=== PATIENT | female | born 1990 | race Caucasian/White ===

== ENCOUNTER 2018-06-09 17:36 | Inpatient (IN) | payer OTHER ==
[~2018-06-09 17:36] MED LIST: BUPIVACAINE 0.75%/DEXT (SPINAL) 2 ML INJ; OXYTOCIN 30 UNITS/LR 500 ML BAG IV
[2018-06-09] MEDS: LACTATED RINGER'S 1,000 ML IV ×2 (18:51→20:28)
[2018-06-09] MEDS ORDERED: CARBOPROST 250 MCG INJ IM (19:00)
[2018-06-09] MEDS ORDERED: OXYTOCIN 30 UNITS/LR 500 ML IV (19:00)
[2018-06-09] MEDS ORDERED: CEFAZOLIN 2 GM/50 ML (PMX) 50 ML IVPB (19:00)
[2018-06-09] MEDS ORDERED: MISOPROSTOL 200 MCG TAB PR (19:00)
[2018-06-09] MEDS ORDERED: METHYLERGONOVINE 0.2 MG INJ IM (19:00)
[2018-06-09 19:01] LABS: ADD MAN DIFF? NO
[2018-06-09 19:03] LABS: BASOPHILS % 0.3 % (0.0-2.0); EOSINOPHILS % 0.2 % (0.0-7.0); HEMATOCRIT 37.3 % (37.0-47.0); HEMOGLOBIN 12.4 g/dl (12.0-16.0); LYMPHOCYTES # 1.8 10^3/ul (0.8-2.9); LYMPHOCYTES % 17.8 % (15.0-51.0); MEAN CORPUSCULAR HEMOGLOBIN 30.6 pg (29.0-33.0); MEAN CORPUSCULAR HGB CONC 33.2 g/dl (32.0-37.0); MEAN CORPUSCULAR VOLUME 92.1 fl (82.0-101.0); MEAN PLATELET VOLUME 11.3 fl (7.4-10.4); MONOCYTE # 0.6 10^3/ul (0.3-0.9); MONOCYTES % 6.2 % (0.0-11.0); NEUTROPHIL # 7.6 10^3/ul (1.6-7.5); NEUTROPHILS % 74.7 % (39.0-77.0); PLATELET COUNT 223 10^3/UL (140-415); RED BLOOD COUNT 4.05 10^6/ul (4.20-5.40); RED CELL DISTRIBUTION WIDTH 14.5 % (11.5-14.5)
[2018-06-09 19:03] LABS: WHITE BLOOD COUNT 10.2 10^3/ul (4.8-10.8)
[2018-06-09 19:23] LABS: INR 0.91; PROTIME 12.3 Sec (11.9-14.9)
[2018-06-09 19:24] LABS: PARTIAL THROMBOPLASTIN TIME 26.4 Sec (23.0-35.0)
[2018-06-09 19:55] LABS: HEPATITIS B SURFACE ANTIGEN NEGATIVE (NEGATIVE)
[2018-06-09] MEDS ORDERED: ONDANSETRON 4 MG INJ (21:00)
[2018-06-09] MEDS ORDERED: OXYTOCIN 10 UNIT INJ (21:00)
[2018-06-09] MEDS ORDERED: morphine SULFATE/PF (10 MG/10 ML) INJ (21:01)
[2018-06-09] MEDS ORDERED: PHENYLephrine (100 MCG/ML) 5ML SYG ×2 (21:01→22:00)
[2018-06-09] MEDS ORDERED: ONDANSETRON 4 MG INJ IV (22:30)
[2018-06-09] MEDS ORDERED: morphine 2 MG INJ IV (22:30)
[2018-06-09] MEDS ORDERED: NALOXONE (0.4 MG/ML) INJ IV (22:30)
[2018-06-09] MEDS ORDERED: DIPHENHYDRAMINE 50 MG INJ IV (22:30)
[2018-06-09] MEDS: OXYTOCIN 30 UNITS/LR 500 ML IV (22:36)
[2018-06-10] MEDS: KETOROLAC 30 MG INJ IV (01:06)
[2018-06-10] MEDS ORDERED: DEXTROSE 5%-LR 1,000 ML IV (01:29)
[2018-06-10] MEDS ORDERED: OXYTOCIN 30 UNITS/LR 500 ML IV (01:30)
[2018-06-10] MEDS ORDERED: METHYLERGONOVINE 0.2 MG TAB PO (01:30)
[2018-06-10] MEDS ORDERED: METHYLERGONOVINE 0.2 MG INJ IM (01:30)
[2018-06-10] MEDS ORDERED: CARBOPROST 250 MCG INJ IM (01:30)
[2018-06-10] MEDS ORDERED: LANOLIN 7 GM TUBE TOP (01:30)
[2018-06-10] MEDS ORDERED: MISOPROSTOL 200 MCG TAB PR (01:30)
[2018-06-10] MEDS: OXYTOCIN 30 UNITS/LR 500 ML IV (02:15)
[2018-06-10 07:51] LABS: ADD MAN DIFF? NO
[2018-06-10 07:54] LABS: WHITE BLOOD COUNT 11.1 10^3/ul (4.8-10.8)
[2018-06-10 07:54] LABS: BASOPHILS % 0.4 % (0.0-2.0); EOSINOPHILS % 0.3 % (0.0-7.0); HEMOGLOBIN 11.6 g/dl (12.0-16.0); LYMPHOCYTES # 1.7 10^3/ul (0.8-2.9); LYMPHOCYTES % 15.5 % (15.0-51.0); MEAN CORPUSCULAR HEMOGLOBIN 30.6 pg (29.0-33.0); MEAN CORPUSCULAR HGB CONC 33.1 g/dl (32.0-37.0); MEAN CORPUSCULAR VOLUME 92.3 fl (82.0-101.0); MEAN PLATELET VOLUME 11.4 fl (7.4-10.4); MONOCYTE # 0.7 10^3/ul (0.3-0.9); MONOCYTES % 6.5 % (0.0-11.0); NEUTROPHIL # 8.6 10^3/ul (1.6-7.5); NEUTROPHILS % 76.9 % (39.0-77.0); PLATELET COUNT 191 10^3/UL (140-415); RED BLOOD COUNT 3.79 10^6/ul (4.20-5.40); RED CELL DISTRIBUTION WIDTH 14.3 % (11.5-14.5)
[2018-06-10] MEDS: SENNA/DOCUSATE NA (8.6MG/50MG) TAB PO ×2 (11:14→22:05)
[2018-06-10] MEDS: LACTATED RINGER'S 1,000 ML IV (13:55)
[2018-06-10 17:23] LABS: RAPID PLASMA REAGIN NONREACTIVE (NR)
[2018-06-10] MEDS: HYDROCODONE/APAP (5/325) TAB PO (22:00)
[2018-06-10] MEDS: IBUPROFEN 800 MG TAB PO (22:05)
[2018-06-11] MEDS: LACTATED RINGER'S 1,000 ML IV (00:52)
[2018-06-11] MEDS: IBUPROFEN 800 MG TAB PO ×3 (05:37→17:50)
[2018-06-11] MEDS: HYDROCODONE/APAP (5/325) TAB PO ×3 (05:38→21:36)
[2018-06-11] MEDS: SENNA/DOCUSATE NA (8.6MG/50MG) TAB PO ×2 (09:03→21:32)
[2018-06-11] MEDS ORDERED: DIPHTH/TET/ACEL PERTUSS (ADULT) 0.5 ML VIAL IM* (11:00)
[2018-06-12] MEDS: HYDROCODONE/APAP (5/325) TAB PO ×3 (04:26→14:19)
[2018-06-12] MEDS: IBUPROFEN 800 MG TAB PO ×2 (05:40→14:20)
[2018-06-12] MEDS: SENNA/DOCUSATE NA (8.6MG/50MG) TAB PO ×2 (09:00→14:27)
[2018-06-13] MEDS ORDERED: MEASLES,MUMPS,RUBELLA VACCINE INJ SC* (09:00)
[2018-06-13] MEDS ORDERED: DIPHTH/TET/ACEL PERTUSS (ADULT) 0.5 ML VIAL IM* (09:00)
== END 2018-06-12 17:45 | disposition home or self-care (01) | DRG 788 ==
LOC: L-D 17:36 → PP1 06-10 02:04 → L-D 20:53
PROVIDERS: Obstetrics & Gynecology
PROC: 10D00Z1 Extraction of Products of Conception, Low, Open Approach (ICD-10-PCS; principal; 2018-06-09 19:30)
PROC: 3E033VJ Introduction of Other Hormone into Peripheral Vein, Percutaneous Approach (ICD-10-PCS; 2018-06-09 19:30)
DX: O34.211 Maternal care for low transverse scar from previous cesarean delivery (principal); Z3A.39 39 weeks gestation of pregnancy; Z37.0 Single live birth
CPT/HCPCS: 85025; 85610; 85730; 86592; 86850; 86900; 86901; 87340; 99464